=== PATIENT | male | born 1985 | race Caucasian/White ===

== ENCOUNTER 2019-04-09 14:44 | Emergency (ER) | payer MEDICAID, OTHER ==
[~2019-04-09] VITALS: Ht 177.8 cm; Wt 70.1 kg
[2019-04-09 14:58] VITALS: BP 147/82
[2019-04-09] MEDS ORDERED: PENI-88 PO (15:42)
[2019-04-09] MEDS ORDERED: IBUP-1985 PO (15:42)
[2019-04-09] MEDS ORDERED: penicillin V potassium 500mg tablet PO ONE (15:45)
[2019-04-09] MEDS ORDERED: acetaminophen 325mg tablet PO ONE (15:45)
== END 2019-04-09 16:04 | disposition home or self-care (01) ==
LOC: ER 14:45
DX: K08.89 Other specified disorders of teeth and supporting structures (principal)
CPT/HCPCS: 99283